=== PATIENT | female | born 1980 | race Caucasian/White ===

== ENCOUNTER 2016-09-01 18:02 | Emergency (ER) | payer BC ==
[2016-09-01 18:12] VITALS: RESP 18
--- NOTE | 2016-09-01 19:35 | ED ---
General Adult HPI - General Chief complaint: ENT Stated complaint: POSS MED REACTION, HEAD AND NECK PRESSURE Time Seen by Provider: 09/01/16 18:15 Source: patient, RN notes reviewed Mode of arrival: ambulatory Limitations: no limitations - History of Present Illness Initial comments: 35 year old female presenting for jaw pain. Patient states she has issues with chronic sinusitis. She follows with Dr. Ross for this. She has recently had multiple rounds of antibiotic and steroid which has not significantly improved her symptoms. She states after she was on clindamycin 2 weeks ago she developed a rash on the last day for treatment. She states she has had ALLERGIES to antibiotics in the past. She states she was then put on prednisone but while on the steroids felt like her heart was racing. She is concerned about this because she has a history of Xybsw-Foyavonnd-Bqxii disease. States that she's had some intermittent palpitations. She was also concerned about the jaw pain today. She states she's had some sore throat associated. She denies any fevers or chills. She states she had a CT scan performed by Dr. Clark several days ago which showed evidence of chronic sinusitis with polyps. She states Dr. Ross believe this is a fungal infection. She states she has a follow-up appointment for surgery at the beginning of September with him. She's not currently on antifungal therapy. - Related Data Home Medications Medication Instructions Recorded Confirmed Metoprolol Succinate [Toprol XL] 25 mg PO DAILY PRN 07/17/13 09/01/16 ALPRAZolam [Xanax] 0.25 mg PO DAILY PRN 02/02/16 09/01/16 diphenhydrAMINE HCL [Children's 25 mg PO DAILY PRN 09/01/16 09/01/16 Benadryl Allergy] Previous Rx's Medication Instructions Recorded Loratadine [Claritin] 10 mg PO DAILY #14 tab 09/01/16 Allergies Allergy/AdvReac Type Severity Reaction Status Date / Time azithromycin Allergy Rash/Hives Verified 09/01/16 19:04 clindamycin Allergy Rash/Hives Verified 09/01/16 19:04 Penicillins Allergy Rash/Hives Verified 09/01/16 19:04 Sulfa (Sulfonamide Allergy Unknown Verified 09/01/16 19:04 Antibiotics) Review of Systems ROS Statement: Those systems with pertinent positive or pertinent negative responses have been documented in the HPI. ROS Other: All systems not noted in ROS Statement are negative. Past Medical History Past Medical History: Asthma, Blood Disorder, Musculoskeletal Disorder Additional Past Medical History / Comment(s): Pt states possible bleeding disorder, new dx of asthma, hx of Arriaga Parkinsons White, Temporary crown bottom right applied 07/17/13, scoliosis History of Any Multi-Drug Resistant Organisms: None Reported Past Surgical History: Ablation, Cardiac Ablation, Section Additional Past Surgical History / Comment(s): cardiac ablation 1998, deviated septum sx Past Anesthesia/Blood Transfusion Reactions: No Reported Reaction Past Psychological History: Anxiety Smoking Status: Never smoker Past Alcohol Use History: Occasional Past Drug Use History: None Reported General Exam - General Exam Comments Initial Comments: General: Awake and Alert. No acute distress. Does not appear acutely ill. Eyes: TINA, EOM intact. No nystagmus. No scleral icterus. HENT: Atraumatic, normocephalic. Mucous membranes moist. Trachea midline. TMJ with normal movement. There is no jaw tenderness to palpation. No posterior pharyngeal edema. Nose with erythematous turbinates. Neck: The neck is supple, there is no tenderness or JVD. Normal swallowing movements. No thyromegaly. No lymphadenopathy. Cardiovascular: Regular rate and rhythm. No murmur, rub, or gallop is appreciated. Distal pulses intact. Respiratory: Lungs are clear to auscultation bilaterally. No wheezes, rales, rhonchi. No respiratory distress. Gastrointestinal: Soft, Nontender. No rebound or guarding. Non-distended. No masses or organomegaly noted. No CVA tenderness. Musculoskeletal: No tenderness. Normal ROM. No gross deformity. No strength deficits. Neurological: A&Ox3. There are no obvious motor or sensory deficits. Coordination appears grossly intact. Speech is normal. Skin: Skin is warm and dry and no rashes or lesions are noted. Psychiatric: Cooperative, appropriate mood & affect, normal judgment. Limitations: no limitations Course Vital Signs 09/01/16 09/01/16 18:07 20:05 Temperature 98.2 F 98.8 F Pulse Rate 78 64 Respiratory 18 18 Rate Blood Pressure 145/81 128/78 O2 Sat by Pulse 100 98 Oximetry EKG Findings - EKG Comments: EKG Findings:: EKG 19:36. Sinus rhythm. Rate 66. Normal axis. No STEMI. Nonspecific EKG. Medical Decision Making - Medical Decision Making 35-year-old female presenting for jaw pain and sore throat. Patient also concerned because she is recently had some palpitations and high blood pressure while on steroids. She finished her course of steroids about 3 days ago. She denies any active palpitations at this time. 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 EKG was performed without evidence of ischemia or significant arrhythmia. Low suspicion of ACS or arrhythmias cause of symptoms at this time. Symptoms likely consistent with chronic sinusitis and TMJ irritation. Patient also concerned she could have an ALLERGIC reaction. She does not appear to have any rash or ALLERGIC reaction at this time. No posterior pharyngeal edema or evidence of anaphylaxis. I spoke with Dr. Clark, does not recommend any antifungal medications at this time. Recommends follow-up appointment as scheduled. Discussed management options with patient. Discussed close follow-up with Dr. Clark. Discussed antihistamine for help with symptoms. Dr. Clark did not recommend any other steroids at this time. Discussed NSAIDs for pain management. Discussed concerning signs symptoms for immediate return to the ED. Patient is agreeable to plan and discharge home. - EKG Data -: EKG Interpreted by Me EKG shows normal: sinus rhythm Rate: normal Disposition Clinical Impression: Chronic sinusitis, Jaw pain, Neck pain Disposition: HOME SELF-CARE Condition: Stable Instructions: Sinusitis (ED), Temporomandibular Disorder (ED), Neck Pain (ED) Additional Instructions: Motrin or Tylenol are safe to help with pain. Prescriptions: Loratadine [Claritin] 10 mg PO DAILY #14 tab Referrals: Joe Larsen MD [Primary Care Provider] - 1-2 days Time of Disposition: 20:02
[2016-09-01 20:08] VITALS: BP 128/78; PULSE 64; TEMP 98.8
== END 2016-09-01 20:14 | disposition home or self-care (01) ==
LOC: EC 18:02
DX: J32.9 Chronic sinusitis, unspecified (principal); R68.84 Jaw pain; M54.2 Cervicalgia; R21 Rash and other nonspecific skin eruption; R00.2 Palpitations; Z88.0 Allergy status to penicillin; Z88.1 Allergy status to other antibiotic agents; Z88.2 Allergy status to sulfonamides
CPT/HCPCS: 93005; 99283

== ENCOUNTER 2016-09-23 08:39 | Day surgery (SDC) | payer BC ==
[2016-09-17 10:05] VITALS: BMI 23.6
[~2016-09-23 08:39] MED LIST: ACETAMINOPHEN TAB 500 MG TAB PO ONE; DEXAMETHASONE SOD PHOSPHATE 10 MG/ML 1 ML VIAL IV ONE; DEXAMETHASONE SOD PHOSPHATE 4 MG/ML 1 ML VIAL IV ONE; FAMOTIDINE 20 MG/2 ML VIAL IV ONE; LACTATED RINGERS 1,000 ML IV SCH; MIDAZOLAM 2 MG/2 ML VIAL IV PRN; ONDANSETRON 4 MG/2 ML VIAL IVP ONE; ceFAZolin 2 GM in SODIUM CHLORIDE 0.9% 100 ML IVPB ONE
[2016-09-23 10:11] VITALS: RESP 16
[2016-09-23] MEDS ORDERED: LIDOCAINE 1% 20 ML VIAL (10MG/ML) FOR IV START INTRADERMA ONE (10:12)
[2016-09-23] MEDS: OXYMETAZOLINE 0.05% NASL SPRAY 15 ML NASAL ONE ×4 (10:12→10:34)
[2016-09-23 10:15] LABS: Glucose,Whole Blood 77 mg/dL (75-99)
[2016-09-23] MEDS: ONDANSETRON 4 MG/2 ML VIAL IVP ONE ×2 (10:20→13:35)
[2016-09-23] MEDS ORDERED: OXYMETAZOLINE 0.05% NASL SPRAY 15 ML ONE (10:25)
[2016-09-23] MEDS ORDERED: HYDROCORTISONE SUCCINATE 100 MG/2 ML VIAL IVP ONE (11:07)
[2016-09-23] MEDS ORDERED: SUCCINYLCHOLINE CHLORIDE 100 MG/5 ML SYR IV ONE (11:19)
[2016-09-23] MEDS ORDERED: DEXAMETHASONE SOD PHOS (MDV) 100 MG/10 ML VIAL ONE (11:19)
[2016-09-23] MEDS ORDERED: PROPOFOL 10 MG/ML 20 ML VIAL IV ONE (11:19)
[2016-09-23] MEDS ORDERED: fentaNYL (PF) 50 MCG/ML 2 ML AMP ONE (11:19)
[2016-09-23] MEDS ORDERED: MIDAZOLAM 2 MG/2 ML VIAL ONE (11:19)
[2016-09-23] MEDS ORDERED: LIDOCAINE 1% INJ 10MG/ML (20 ML MDV) ONE (11:19)
[2016-09-23] MEDS ORDERED: BUPIVACAIN-EPI 0.5%-1:200,000 30 ML VIAL SQ ONE ×2 (11:42)
[2016-09-23] MEDS ORDERED: LIDOCAINE 1%-EPI 1:100,000 20 ML VIAL SUBMUCOSAL ONE ×2 (11:43)
[2016-09-23] MEDS ORDERED: EPINEPHrine 1 MG/ML (MDV) 30 ML VIAL TOPICAL ONE ×2 (11:44)
[2016-09-23] MEDS ORDERED: LIDOCAINE 4% (PF) 5 ML AMP MISCELLANE ONE (11:52)
[2016-09-23] MEDS ORDERED: OXYMETAZOLINE 0.05% NASL SPRAY 15 ML NASAL ONE (11:53)
[2016-09-23 12:54] VITALS: TEMP 97.2
--- NOTE | 2016-09-23 13:12 | P.OP ---
Date of Procedure: 09/23/16 Preoperative Diagnosis: Chronic maxillary, ethmoid, sphenoid sinusitis with maxillary sinus polyps Postoperative Diagnosis: Same Procedure(s) Performed: Bilateral functional endoscopic sinus surgery with maxillary antrostomies and polypectomy along with a anterior ethmoidectomy and sphenoid sinusotomies bilaterally with removal of diseased tissue. Implants: Anesthesia: GETA Surgeon: Freddy Ross Estimated Blood Loss (ml): 5 Pathology: other (Sinonasal) Condition: stable Disposition: PACU Indications for Procedure: This patient presented to the office with chronic sinus problems. She been on antibiotics including clindamycin with no improvement had a follow-up CAT scan showing polyps of the maxillary sinuses sphenoid sinus infection and ethmoiditis. She has failed medical therapy and the infraturbinal maxillary antrostomy along with a bilateral sphenoid sinusotomy and anterior ethmoidectomy was discussed. All questions were answered and all risks were explained. Operative Findings: Patient had disease of the maxillary ethmoid and sphenoid sinuses with bilateral maxillary sinus polyps Description of Procedure: This patient was taken to the operative room and placed in the supine position. A general inhalation anesthetic was administered to the patient by mask and subsequently intubated with a cuffed endotracheal tube by the department of anesthesia with a functioning IV line in place. The patient was monitored throughout the entire case by the department of anesthesia. The lateral nasal wall and middle turbinate root of the middle turbinate and sphenopalatine region were injected with lidocaine 1% with Marcaine. We entered the nose with a 0 and 30 Duggan dang endoscope and infraturbinal maxillary antrostomies were performed with a Phani. An x-ray sinuses were opened underneath the inferior turbinates widely. We entered the maxillary sinuses and we removed polyps and cysts from the maxillary sinuses. After the diseased tissue was removed we then identified the middle turbinate and brought medially and remove some synechiae. We opened up the maxillary sinuses nicely bilaterally. We then continued our dissection into the ethmoid air cells and opened up the anterior ethmoids are nicely to the basal lamella. This was done bilaterally. After the anterior ethmoids were opened widely we then entered the sphenoid sinuses bilaterally and we opened up the sphenoid sinuses. Excellent results were obtained. After we entered the sphenoid sinuses we remove diseased tissue from the sphenoid sinuses during this with endoscopic visualization. To summarize the maxillary sinuses were opened both above and below the inferior turbinates and diseased tissue and polyps and cysts were removed from both maxillary sinuses. This was done under endoscopic visualization. We then did a anterior ethmoidectomy with removal of synechiae and diseased tissue. This was done bilaterally with endoscopic visualization. We also open up the sphenoid sinuses bilaterally and removed diseased tissue. Excellent results were obtained the patient tolerated this well and follow-up will be in the office in 1 week. Xerogel was placed bilaterally. We did utilize a suture to fixate the middle turbinate to the septum.
[2016-09-23] MEDS ORDERED: PROMETHAZINE INJ 6.25 MG in SODIUM CHLORIDE 0.9% 50 ML IVPB STA (14:26)
[2016-09-23 16:16] VITALS: BP 125/60; PULSE 71
== END 2016-09-23 16:22 | disposition home or self-care (01) ==
LOC: OR 08:39
PROVIDERS: ATTEND Otolaryngology
DX: J32.8 Other chronic sinusitis (principal); J33.8 Other polyp of sinus; I47.1 Supraventricular tachycardia; I10 Essential (primary) hypertension; F41.9 Anxiety disorder, unspecified; I45.6 Pre-excitation syndrome; K21.9 Gastro-esophageal reflux disease without esophagitis; J45.998 Other asthma; Z79.2 Long term (current) use of antibiotics; Z79.891 Long term (current) use of opiate analgesic; Z79.51 Long term (current) use of inhaled steroids; Z79.899 Other long term (current) drug therapy; Z88.1 Allergy status to other antibiotic agents; Z88.0 Allergy status to penicillin; Z88.2 Allergy status to sulfonamides; Z91.018 Allergy to other foods
CPT/HCPCS: 31267; 31254; 31288; J2001; J0171; J1100; J2550; J1720; J2405; 81025; 88305

== ENCOUNTER 2017-09-30 09:38 | Day surgery (SDC) | payer BC ==
[2017-09-29 11:13] VITALS: BMI 26.5
--- NOTE | 2017-09-30 08:15 | P.GSHP ---
History of Present Illness H&P Date: 09/30/17 CHIEF COMPLAINT: Cholecystitis HISTORY OF PRESENT ILLNESS: The patient is a 37-year-old female who presents with history of epigastric including right upper quadrant abdominal pain. She underwent diagnostic studies for her gallbladder. Separately her clinical picture was consistent with cholecystitis. Now she presents for surgical intervention. PAST MEDICAL HISTORY: Please see list PAST SURGICAL HISTORY: Please see list MEDICATIONS: Please see list ALLERGIES: Denies. SOCIAL HISTORY: No illicit drug use or recent tobacco use FAMILY HISTORY: Pertinent for gallbladder disease REVIEW OF ORGAN SYSTEMS: CONSTITUTIONAL: No reports of fevers or chills. HEENT: Denies any troubles with the vision or hearing. ENDOCRINE: No reports of hypothyroidism. No diabetes. RESPIRATORY: No recent pneumonias. CARDIOVASCULAR: Denies chest pain or palpitations GI: No blood in stools or constipation. PHYSICAL EXAM: VITAL SIGNS: Afebrile vital signs stable GENERAL: Well-developed pleasant in no acute distress. HEENT: No scleral icterus. Extraocular movements grossly intact. Moist buccal mucosa. NECK: Supple without lymphadenopathy. CHEST: Unlabored respirations. Equal bilateral excursions. CARDIOVASCULAR: Regular rate regular rhythm rhythm. Distal 2+ pulses. ABDOMEN: Soft, nondistended. Tender along the epigastrium and right upper quadrant. MUSCULOSKELETAL: No clubbing, cyanosis, or edema. NEURO: Cranial nerves II to XII within normal limits. No focal or lateralizing signs. PSYCH: Alert and oriented to person, place and time. ASSESSMENT: 1. Epigastric and right upper quadrant abdominal pain 2. Chronic cholecystitis PLAN: 1. Will need a robotic cholecystectomy possible open. Benefits and risks were described. 2. Heparin for DVT prophylaxis 5000 units. 3. Antibiotic prophylaxis. Past Medical History Past Medical History: Asthma, Hypertension, Musculoskeletal Disorder Additional Past Medical History / Comment(s): Mild asthma, no medication use needed. Hx of Arriaga Parkinsons White. Bilateral crowns on bottom, permanent upper and lower retainers, hx scoliosis. Hx hypertension, bouts of palpitations. History of Any Multi-Drug Resistant Organisms: None Reported Past Surgical History: Cardiac Ablation, Section, Heart Catheterization Additional Past Surgical History / Comment(s): Deviated septum sx, Ceserean Section X3. Past Anesthesia/Blood Transfusion Reactions: Postoperative Nausea & Vomiting ( PONV) Additional Past Anesthesia/Blood Transfusion Reaction / Comment(s): Really sleepy and took a long time to wake up after last surgery X1. Past Psychological History: Anxiety Smoking Status: Never smoker Past Alcohol Use History: Occasional Past Drug Use History: None Reported - Past Family History Mother Family Medical History: No Reported History Medications and Allergies Home Medications Medication Instructions Recorded Confirmed Type Metoprolol Tartrate 25 mg PO DAILY PRN 09/17/16 09/29/17 History Escitalopram Oxalate [Lexapro] 10 mg PO HS 09/29/17 09/29/17 History Allergies Allergy/AdvReac Type Severity Reaction Status Date / Time azithromycin Allergy Rash/Hives Verified 09/29/17 10:58 clindamycin Allergy Rash/Hives Verified 09/29/17 10:58 Penicillins Allergy Rash/Hives Verified 09/29/17 10:58 Sulfa (Sulfonamide Allergy Unknown Verified 09/29/17 10:58 Antibiotics)
[~2017-09-30 09:38] MED LIST changes: +ACETAMINOPHEN IV (For NPO) 1,000 MG in EMPTY BAG 1 BAG IVPB ONE; -ACETAMINOPHEN TAB 500 MG TAB PO ONE; -DEXAMETHASONE SOD PHOSPHATE 4 MG/ML 1 ML VIAL IV ONE; -FAMOTIDINE 20 MG/2 ML VIAL IV ONE; +HEPARIN SODIUM,PORCINE 5,000 UNIT/ML 1 ML VIAL SQ ONE; +INDOCYANINE GREEN 25 MG VIAL IV STA; +SCOPOLAMINE 1.5MG/72HR PATCH TRANSDERM ONE; -ceFAZolin 2 GM in SODIUM CHLORIDE 0.9% 100 ML IVPB ONE; +ceFAZolin IN SWFI 2 GM/20 ML SYRINGE IVP ONE; +fentaNYL (PF) 50 MCG/ML 2 ML AMP IV PRN
[2017-09-30 10:07] VITALS: RESP 16
[2017-09-30] MEDS ORDERED: LIDOCAINE 1% 20 ML VIAL (10MG/ML) FOR IV START INTRADERMA ONE (10:27)
[2017-09-30 10:28] LABS: Basophils % (A) 0 %; Eosinophils # (A) 0.1 k/uL (0-0.7); Eosinophils % (A) 1 %; HCT 38.1 % (34.0-46.0); HGB 12.8 gm/dL (11.4-16.0); Lymphocytes % (A) 18 %; MCH 26.7 pg (25.0-35.0); MCHC 33.6 g/dL (31.0-37.0); MCV 79.5 fL (80.0-100.0); Mean Platelet Volume 8.5; Monocytes # (A) 0.3 k/uL (0-1.0); Monocytes % (A) 5 %; Neutrophils # (A) 4.1 k/uL (1.3-7.7); Neutrophils % (A) 75 %; Platelet Count 198 k/uL (150-450); RBC 4.79 m/uL (3.80-5.40); WBC 5.5 k/uL (3.8-10.6)
[2017-09-30 10:41] LABS: ALT 25 U/L (9-52); AST 21 U/L (14-36); Albumin 4.5 g/dL (3.5-5.0); Alkaline Phosphatase 55 U/L (38-126); Anion Gap 12 mmol/L; Blood Urea Nitrogen 8 mg/dL (7-17); Calcium 9.1 mg/dL (8.4-10.2); Carbon Dioxide 23 mmol/L (22-30); Chloride 106 mmol/L (98-107); Glucose 86 mg/dL (74-99); Potassium 4.3 mmol/L (3.5-5.1); Sodium 141 mmol/L (137-145); Total Bilirubin 1.1 mg/dL (0.2-1.3); Total Protein 7.4 g/dL (6.3-8.2)
[2017-09-30] MEDS ORDERED: GLYCOPYRROLATE 0.2 MG/ML 2 ML VIAL ONE (12:31)
[2017-09-30] MEDS ORDERED: fentaNYL (PF) 50 MCG/ML 2 ML AMP ONE (12:31)
[2017-09-30] MEDS ORDERED: NEOSTIGMINE 1 MG/ML 10 ML VIAL ONE (12:31)
[2017-09-30] MEDS ORDERED: INDOCYANINE GREEN 25 MG VIAL IV ONE (12:31)
[2017-09-30] MEDS ORDERED: SUCCINYLCHOLINE CHLORIDE 100 MG/5 ML SYR IV ONE (12:31)
[2017-09-30] MEDS ORDERED: MIDAZOLAM 2 MG/2 ML VIAL ONE (12:31)
[2017-09-30] MEDS ORDERED: ROCURONIUM BROMIDE 10 MG/ML 10 ML VIAL IV ONE (12:31)
[2017-09-30] MEDS ORDERED: LIDOCAINE 1% INJ 10MG/ML (20 ML MDV) ONE (12:31)
[2017-09-30] MEDS ORDERED: HYDROmorphone (PF) 1 MG/ML ONE (12:31)
[2017-09-30] MEDS ORDERED: PROPOFOL 10 MG/ML 20 ML VIAL IV ONE (12:31)
[2017-09-30] MEDS ORDERED: KETOROLAC 30 MG/ML 1 ML VIAL ONE (12:31)
[2017-09-30] MEDS ORDERED: LIDOCAINE 1% INJ 10MG/ML (20 ML MDV) SQ ONE (12:57)
--- NOTE | 2017-09-30 13:41 | P.OP ---
Date of Procedure: 09/30/17 Description of Procedure: SURGEON: ESHA CLARKE MD BOBJ DEVELOPER: PREOPERATIVE DIAGNOSES: 1. Chronic cholecystitis 2. Right upper quadrant abdominal pain 3. Asthma 4. Hypertensive heart disease 5. History of palpitations 6. Depressive disorder POSTOPERATIVE DIAGNOSES: 1. Chronic cholecystitis 2. Right upper quadrant abdominal pain 3. Asthma 4. Hypertensive heart disease 5. History of palpitations 6. Depressive disorder OPERATION: Robotic-assisted da April Xi laparoscopic cholecystectomy, multiport with FIREFLY ESTIMATED BLOOD LOSS: 5 mL. SPECIMENS REMOVED: Gallbladder. COMPLICATIONS: None. OPERATIVE FINDINGS: 1. Chronic cholecystitis INDICATIONS: The patient is a 37-year-old female who presents with cholelcystitis. Surgical intervention with a laparoscopic cholecystectomy was described at length including injury to the biliary tree, bleeding, infection, need for further surgery. Informed consent was obtained. Robotic assisted laparoscopic approach was described. Benefits and risks of the procedure including but not limited to bleeding, infection, injury to the biliary tree was described. Informed consent was obtained. DESCRIPTION OF PROCEDURE: Patient was brought to the operating room, placed in supine position. After general induction, the abdomen had been prepped and draped in standard sterile fashion. The robotic da April XI system was primed. After a timeout protocol was performed, the patient had been prepped and draped in standard sterile fashion. The patient was injected with indocyanine green. A 5 mm 0 degrees laparoscopic trocar entry was performed along the left upper quadrant. The abdomen insufflated to 15 mmHg pressure which she tolerated well. Diagnostic laparoscopy demonstrated no injury to bowel viscera or mesentery. The liver surface was unremarkable. Next, two 8 mm robotic ports were placed along the right upper abdomen. The camera 8-mm port was maintained along the epigastrium. Another 8 mm port was placed along the left upper abdominal wall after exchanging the 5 mm port. Please note that the ports were placed at least 10 to 15 cm away from the target anatomy of the gallbladder. The robot was docked along the left lateral abdomen. The patient was repositioned in reverse Trendelenburg position. Using a grasper for arm 3, a grasper for arm 4, including hook cautery for arm 1 , the robotic system was docked and primed as described. Instruments were interchanged by the trading assistant including hook cautery, Bovie cautery and clip appliers. I had sat at the console. Adhesions were identified along the infundibulum of the gallbladder and addressed using hook cautery. The gallbladder fundus was retracted over the dome of the liver. Initial attention was brought to the infundibulum which was gently retracted in the inferior lateral approach. Using a grasper, the cystic duct including the cystic artery was carefully skeletonized. FIREFLY was used to identify the cystic artery and cystic structures. Large PLASTIC clips were used throughout the entire case. Using a clip manager furniture 2 clips were placed proximally, and 1 clip was placed distally along the cystic duct and then cauterized with the cautery. Again care was taken to avoid any injury to the biliary tree as the common bile duct was clearly visualized during this portion of dissection. Next, the cystic artery was similarly clipped and cauterized. Electro-Bovie cautery was used to remove the gallbladder from the hepatic fossa. Hemostasis was checked and found to be adequate. The robot was undocked. I re-scrubbed into the case. Using a 10 mm Endo Catch bag via the left upper quadrant incision, the specimen was removed from the abdominal cavity. All pneumoperitoneum instruments were evacuated from the abdominal cavity. The incisions were reapproximated using 4-0 Monocryl in an interrupted subcuticular fashion. Fascial defects were less than 8 mm in size. Please note along the trocar sites, local anesthetic was placed as a field block prior to insertion of all instruments. Liquid glue was applied to the skin. At the end of the procedure needle, sponge, and instrument count had been verified correct by the surgical scrub tech. The patient was transferred to postanesthesia care unit in stable condition. Intraoperative films were shared with the patient's family who were very pleased with the level of care. Console time 18 minutes Plan - Discharge Summary Discharge Rx Participant: Yes New Discharge Prescriptions: New HYDROcodone/APAP 5-325MG [[place] 5-325] 1 tab PO Q4HR PRN 3 Days #18 tab PRN Reason: Pain Ibuprofen [Motrin] 600 mg PO Q8HR PRN #20 tab PRN Reason: pain No Action Metoprolol Tartrate 25 mg PO DAILY PRN PRN Reason: Increased Blood Pressure Escitalopram Oxalate [Lexapro] 10 mg PO HS Discharge Medication List Metoprolol Tartrate 25 mg PO DAILY PRN 06/30/17 [History] Escitalopram Oxalate [Lexapro] 10 mg PO HS 09/29/17 [History] HYDROcodone/APAP 5-325MG [[place] 5-325] 1 tab PO Q4HR PRN 3 Days #18 tab [Rx] Ibuprofen [Motrin] 600 mg PO Q8HR PRN #20 tab 09/30/17 [Rx] Follow up Appointment(s)/Referral(s): Esha Clarke MD [STAFF PHYSICIAN] - 10/04/17 Patient Instructions/Handouts: Laparoscopic Cholecystectomy (DC) Activity/Diet/Wound Care/Special Instructions: No lifting over 5 pounds in 1 week. May shower. No bath tub soaks. Low-fat diet. Discharge Disposition: HOME SELF-CARE
[2017-09-30] MEDS ORDERED: LACTATED RINGERS 1,000 ML IV ONE (13:42)
[2017-09-30 13:58] VITALS: TEMP 97.7
[2017-09-30 16:09] VITALS: BP 124/74; PULSE 67
== END 2017-09-30 16:11 | disposition home or self-care (01) ==
LOC: OR 09:38
PROVIDERS: ATTEND Surgery Plastic and Reconstructive Surgery
DX: K80.10 Calculus of gallbladder with chronic cholecystitis without obstruction (principal); J45.909 Unspecified asthma, uncomplicated; I10 Essential (primary) hypertension; M41.9 Scoliosis, unspecified; I45.6 Pre-excitation syndrome; I11.9 Hypertensive heart disease without heart failure; F32.9 Major depressive disorder, single episode, unspecified; F41.9 Anxiety disorder, unspecified; Z79.899 Other long term (current) drug therapy; Z88.1 Allergy status to other antibiotic agents; Z88.0 Allergy status to penicillin; Z88.2 Allergy status to sulfonamides
CPT/HCPCS: 81025; 88304; 80053; 85025; 47562; J2250; J1644; J1100; J2710; J2405; J2001; J3010; J1885; J1170; J0131; J0330; J2704; J0690